=== PATIENT | female | born 1940 | race Caucasian/White ===

== ENCOUNTER 2017-05-18 13:18 | Inpatient (IN) | payer OTHER ==
[~2017-05-18] VITALS: Ht 167.6 cm; Wt 111.0 kg
--- NOTE | ~2017-05-18 | D ---
[facility] [place] [address] DISCHARGE SUMMARY Name: DEMARCO VELÁZQUEZ Room #: 445-P [facility].#: [id number] Admission: 05/18/17 Attend Phys: Sandee Bhardwaj MD Discharge: 05/23/17 Date of : 36 Report #: [id number] THIS REPORT FOR: //name// CC: Sandee Garcia DATE OF SERVICE: 05/23/2017 HISTORY OF PRESENT ILLNESS: The patient is a 76-year-old female who came to the hospital for generalized weakness and fall. Please refer to the admission H and P for details. In brief, the patient was found to have severe urinary tract infection, elevated white count, and suspected infiltrates on the chest x-ray. HOSPITALIZATION COURSE: The patient was hospitalized. She was treated with Rocephin and Zithromax. Rocephin covered the UTI. Urine culture eventually grew group B streptococcus. Chest x-ray was repeated a few days later, that showed clearing infiltrates. The patient also had cough during the hospital stay. She developed abdominal pain, that was thought to be due to abdominal muscle cough. Cough was treated symptomatically. Right upper quadrant and abdominal ultrasound was unremarkable. The patient had acute kidney injury on admission. Meloxicam and metformin were held as well as losartan. On IV fluids, kidney injury has resolved. Currently, the patient's condition is medically stable. She was seen and evaluated by physical therapy. The patient still has significant weakness. Transferring the patient to a detention facility for further rehab is recommended. The patient will be transferred there later today or as soon as her transfer is approved by insurance. DISCHARGE DIAGNOSES: 1. Severe urinary tract infection as detailed above, urine culture is growing Streptococcus group B. 2. Bibasilar infiltrates on the chest x-ray, suspected pneumonia, clinically much better. 3. Myalgias on admission, resolved. Viral illness? Negative influenza. 4. Acute kidney injury on chronic kidney disease stage 3. Likely due to dehydration, resolved. 5. Abdominal muscle spasm, likely due to cough, resolving. Negative right upper quadrant ultrasound. 6. Diabetes mellitus type 2, stable during the hospital stay. 7. Debility and weakness. [address] [address] DISCHARGE SUMMARY Name: DEMARCO VELÁZQUEZ Room #: 445-P [facility] [place] ..#: [id number] Admission: 05/18/17 Attend Phys: Sandee Bhardwaj MD Discharge: 05/23/17 Date of : 36 Report #: [id number] DISCHARGE MEDICATIONS: Please refer to medication reconciliation list. FOLLOWUP PLAN: Follow up with the primary care physician in about 1 week. I spent greater than 30 minutes to coordinate the patient's discharge from the hospital. <ELECTRONICALLY SIGNED> By: Sandee Bhardwaj MD 05/24/17 1604 [id number] 1042 Sandee Bhardwaj MD /venessa
--- NOTE | ~2017-05-18 | H ---
[facility] [place] [address] HISTORY AND PHYSICAL Name: DEMARCO VELÁZQUEZ Room #: 445-P [facility] IN M.R.#: [id number] Admission: 05/18/17 Attend Phys: Sandee Bhardwaj MD Discharge: Date of : 36 Report #: [id number] THIS REPORT FOR: //name// CC: Sandee Garcia DATE OF SERVICE: 05/18/2017 CHIEF COMPLAINT: Generalized weakness and fall. HISTORY OF PRESENT ILLNESS: The patient is a 76-year-old female who has been weak and tired during last 3-4 days. The patient reports nasal congestion, myalgias, and on and off diarrhea. She is not sure if she had fever. She denies chills. The patient presented to the Emergency Room today because she was very weak, and she fell few times at home. She did not sustain any injuries. In the Emergency Room, urinalysis was consistent with UTI. Chest x-ray showed possible bilateral infiltrates. Rest of the workup was unremarkable, except a slightly elevated creatinine at 1.5. Baseline is not known. PAST MEDICAL HISTORY: 1. Hypertension. 2. Diabetes mellitus type 2. 3. Gout. 4. DJD. CURRENT MEDICATIONS: Allopurinol, losartan, meloxicam, metformin and metoprolol. FAMILY HISTORY: Reviewed and not pertinent to the patient's current condition. SOCIAL HISTORY: The patient lives by herself. She does not smoke cigarettes and does not drink alcohol. REVIEW OF SYSTEMS: As above in HPI section, all others negative. PHYSICAL EXAMINATION: GENERAL: The patient is an elderly female, who is in no apparent distress. She is alert and oriented x 3. VITAL SIGNS: Blood pressure is 144/58, heart rate is 93, respiration is 19, temperature is 98.9. HEENT: Pupils are equal. Eye movements are normal. Sclerae are anicteric. NECK: Supple. The patient has no thyromegaly. She has no JVD or carotid bruits. RESPIRATORY: The patient has diminished respiratory sounds. No crackles or [facility] [address] [place] [address] HISTORY AND PHYSICAL Name: DEMARCO VELÁZQUEZ Room #: 445-P [facility] IN [facility].#: [id number] Admission: 05/18/17 Attend Phys: Sandee Bhardwaj MD Discharge: Date of : 36 Report #: [id number] wheezes are appreciated. Chest moves symmetrically with breathing. CARDIOVASCULAR: The patient has regular rhythm and rate. She has no murmurs, gallops or rubs. GASTROINTESTINAL: Abdomen soft and nondistended. Bowel sounds are present. The patient has no tenderness. Hepatomegaly or splenomegaly is not palpated. MUSCULOSKELETAL: The patient has no joint deformities. Range of motion is normal. NEUROLOGIC: The patient is alert and oriented x 3. Her examination is nonfocal. SKIN: Reveals no skin lesions. LABORATORY DATA: Basic metabolic profile shows creatinine of 1.5. GFR is 34. CK is 444. Baseline creatinine is not available. On CBC, white count is 23,000, 89% neutrophils, no bands. Hemoglobin is 15.3, hematocrit is 45.6, platelets 208. Urinalysis is consistent with UTI, white blood cells greater than 25. Bacteria present. Chest x-ray shows bilateral basilar infiltrates versus atelectasis. ASSESSMENT AND PLAN: 1. Severe urinary tract infection. Urine culture is submitted. The patient will be treated with Rocephin. 2. Bibasilar infiltrates on the chest x-ray. The patient has no respiratory symptoms. Continue Rocephin. We will add Zithromax. 3. Myalgias, and viral symptoms during last few days. Check for influenza. Use Tamiflu empirically for now. 4. Renal failure. Acute kidney injury versus chronic kidney disease stage 3. Hold meloxicam, metformin, and losartan for now. Continue metoprolol. Use IV fluids and reassess. 5. Deep vein thrombosis prophylaxis. Subcutaneous Lovenox. <ELECTRONICALLY SIGNED> By: Sandee Bhardwaj MD 05/21/17 [id number] 1746 Sandee Bhardwaj MD /nt
--- NOTE | ~2017-05-18 | EKG ---
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 Artifact limits rhythm interpretation Artifact in lead(s) I,II,III,aVR,aVL,aVF,V1 No previous ECG available for comparison Electronically Signed On 05-20-2017 15:12:55 SUGAR SAMPLER by Anand Mclean [email or web address] <ELECTRONICALLY SIGNED> By: Anand Mclean MD, [facility] 05/20/17 1512 1321 1321 Anand Mclean MD, [facility] /EPI
[2017-05-18 13:19] VITALS: BP 147/57
[2017-05-18] MEDS ORDERED: COZAAR 25 MG TA25 M2 PO (13:27)
[2017-05-18] MEDS ORDERED: ALLOPURINOL 10100 M1 PO (13:28)
[2017-05-18] MEDS ORDERED: TOPROL XL100 MG PO (13:28)
[2017-05-18] MEDS ORDERED: METFORMIN HCL500 MG PO (13:28)
[2017-05-18] MEDS ORDERED: MOBIC15 MG PO (13:29)
[2017-05-18 14:20] LABS: HEMATOCRIT 45.6 % (37.0-47.0); HEMOGLOBIN 15.3 gm/dL (12.0-15.0); MCH 30.5 pg (26.0-34.0); MCHC 33.5 g/dL (28.0-37.0); MCV 90.8 fL (80.0-100.0); PLATELET COUNT 208 thou/uL (150-400); RBC 5.02 mil/uL (4.20-5.00); RDW 13.9 % (10.5-14.5); WBC 23.5 thou/uL (4.0-11.0)
[2017-05-18 14:29] LABS: CALCIUM 9.7 mg/dL (8.5-10.1); CREATININE 1.5 mg/dL (0.6-1.0); POTASSIUM 3.7 mmol/L (3.5-5.1)
[2017-05-18 14:54] LABS: ABSOLUTE NEUTROPHILS 20.9 thou/uL (1.4-8.2)
[2017-05-18 15:21] LABS: URINE BILIRUBIN NEGATIVE (Negative); URINE BLOOD 2+ (Negative); URINE CLARITY CLOUDY; URINE COLOR YELLOW; URINE GLUCOSE-RANDOM* NEGATIVE (Negative); URINE KETONES TRACE (Negative); URINE NITRITE-REFLEX NEGATIVE (Negative); URINE PROTEIN (DIPSTICK) 1+ (Negative); URINE SPECIFIC GRAVITY >= 1.030 (1.005-1.035)
[2017-05-18 15:23] LABS: URINE LEUKOCYTES-REFLEX 2+ (Negative)
[2017-05-18 15:34] LABS: SQUAMOUS >10 Many /LPF (0-3); URINE WBC-REFLEX >25 Many /HPF (0-5)
[2017-05-18 15:35] LABS: AMORPHOUS URATES Moderate /LPF (None Seen); BACTERIA-REFLEX >30 Many /HPF (None Seen); CASTS None Seen /LPF (None Seen); URINE RBC 3-10 Few /HPF (0-2)
[2017-05-18 17:22] VITALS: BP 147/60
[2017-05-18 18:55] VITALS: BP 130/94
[2017-05-18 19:30] VITALS: BP 147/68
[2017-05-19 01:08] VITALS: BP 173/96
[2017-05-19 03:40] VITALS: BP 143/59
[2017-05-19 03:48] LABS: HEMATOCRIT 36.6 % (37.0-47.0); MCH 30.1 pg (26.0-34.0); MCHC 32.8 g/dL (28.0-37.0); MCV 91.7 fL (80.0-100.0); PLATELET COUNT 172 thou/uL (150-400); RBC 3.99 mil/uL (4.20-5.00); RDW 14.4 % (10.5-14.5); WBC 20.6 thou/uL (4.0-11.0)
[2017-05-19 04:10] LABS: ALBUMIN 2.4 g/dL (3.4-5.0); CALCIUM 8.2 mg/dL (8.5-10.1); CREATININE 1.2 mg/dL (0.6-1.0); POTASSIUM 3.3 mmol/L (3.5-5.1); TOTAL BILIRUBIN 1.6 mg/dL (<0.1-1.0); TOTAL PROTEIN 6.1 g/dL (6.4-8.2)
[2017-05-19 05:15] LABS: ABSOLUTE NEUTROPHILS 18.7 thou/uL (1.4-8.2)
[2017-05-19 08:00] VITALS: BP 156/69
[2017-05-19] MEDS ORDERED: ACETAMINOPHEN-1 EAC1 PO (09:39)
[2017-05-19] MEDS ORDERED: AMARYL2 MG PO (09:41)
[2017-05-19] MEDS ORDERED: NITROGLYCERIN0.4 MG SUBLING (09:43)
[2017-05-19 16:00] VITALS: BP 168/79
[2017-05-19 18:38] VITALS: BP 148/50
[2017-05-20 04:59] VITALS: BP 155/71
[2017-05-20 06:07] LABS: HEMATOCRIT 35.8 % (37.0-47.0); HEMOGLOBIN 11.8 gm/dL (12.0-15.0); MCH 29.9 pg (26.0-34.0); MCHC 32.9 g/dL (28.0-37.0); MCV 90.8 fL (80.0-100.0); RBC 3.95 mil/uL (4.20-5.00); RDW 14.1 % (10.5-14.5); WBC 16.2 thou/uL (4.0-11.0)
[2017-05-20 06:22] LABS: ALBUMIN 2.1 g/dL (3.4-5.0); CALCIUM 8.7 mg/dL (8.5-10.1); CREATININE 1.1 mg/dL (0.6-1.0); POTASSIUM 3.7 mmol/L (3.5-5.1); TOTAL BILIRUBIN 1.5 mg/dL (<0.1-1.0); TOTAL PROTEIN 6.2 g/dL (6.4-8.2)
[2017-05-20 08:00] VITALS: BP 138/50
[2017-05-20 16:00] VITALS: BP 144/69
[2017-05-20 19:30] VITALS: BP 144/52
[2017-05-21 05:15] VITALS: BP 152/70
[2017-05-21 05:38] LABS: HEMATOCRIT 33.8 % (37.0-47.0); HEMOGLOBIN 11.1 gm/dL (12.0-15.0); MCH 30.2 pg (26.0-34.0); MCV 91.7 fL (80.0-100.0); RBC 3.68 mil/uL (4.20-5.00); RDW 14.1 % (10.5-14.5); WBC 15.1 thou/uL (4.0-11.0)
[2017-05-21 05:59] LABS: ALBUMIN 1.9 g/dL (3.4-5.0); CALCIUM 8.3 mg/dL (8.5-10.1); CREATININE 1.1 mg/dL (0.6-1.0); POTASSIUM 3.7 mmol/L (3.5-5.1); TOTAL BILIRUBIN 0.8 mg/dL (<0.1-1.0); TOTAL PROTEIN 5.9 g/dL (6.4-8.2)
[2017-05-21 08:00] VITALS: BP 153/63
[2017-05-21 16:00] VITALS: BP 140/64
[2017-05-21 20:45] VITALS: BP 146/67
[2017-05-22 03:13] VITALS: BP 186/76
[2017-05-22 08:00] VITALS: BP 153/80
[2017-05-22 16:00] VITALS: BP 144/67
[2017-05-22 20:20] VITALS: BP 180/87
[2017-05-23 03:48] VITALS: BP 171/77
[2017-05-23 03:59] LABS: CALCIUM 8.5 mg/dL (8.5-10.1); POTASSIUM 3.9 mmol/L (3.5-5.1)
[2017-05-23 04:03] LABS: ABSOLUTE NEUTROPHILS 10.7 thou/uL (1.4-8.2); BASOPHILS 0.4 % (0.0-2.0); EOSINOPHILS 3.4 % (0.0-3.0); HEMATOCRIT 36.1 % (37.0-47.0); LYMPHOCYTES 6.1 % (24.0-44.0); MCH 30.4 pg (26.0-34.0); MCHC 33.3 g/dL (28.0-37.0); MCV 91.4 fL (80.0-100.0); MONOCYTES 8.3 % (1.0-8.0); PLATELET COUNT 221 thou/uL (150-400); POLYS 81.8 % (36.0-66.0); RBC 3.95 mil/uL (4.20-5.00); WBC 13.1 thou/uL (4.0-11.0)
[2017-05-23 08:00] VITALS: BP 188/51
[2017-05-23] MEDS ORDERED: CEFUROXIME500 MG PO (10:03)
[2017-05-23] MEDS ORDERED: ACETAMINOPHEN-1 EAC1 PO (10:03)
[2017-05-23 10:32] VITALS: BP 149/56
== END 2017-05-23 16:05 | DRG 871 ==
LOC: ER 13:18 → 4S 15:46 → EROBS 15:46 → 4S 19:01
PROVIDERS: Emergency Medicine; Hospitalist; Internal Medicine Endocrinology, Diabetes & Metabolism
DX: A41.9 Sepsis, unspecified organism (principal); G93.40 Encephalopathy, unspecified; N17.9 Acute kidney failure, unspecified; N39.0 Urinary tract infection, site not specified; I10 Essential (primary) hypertension; E11.9 Type 2 diabetes mellitus without complications; R53.81 Other malaise; M10.9 Gout, unspecified; E86.0 Dehydration; M79.1 Myalgia; M19.90 Unspecified osteoarthritis, unspecified site; I25.10 Atherosclerotic heart disease of native coronary artery without angina pectoris; Z79.899 Other long term (current) drug therapy; Z88.0 Allergy status to penicillin
CPT/HCPCS: 10100